=== PATIENT | female | born 1945 | race Caucasian/White ===

== ENCOUNTER 2016-12-20 16:38 | Emergency (ER) | payer OTHER ==
[~2016-12-20] VITALS: Ht 154.9 cm; Wt 63.0 kg
[2016-12-20 16:40] VITALS: BP 136/79; PULSE 80; RESP 18; TEMP 97.8; O2SAT 98
--- NOTE | 2016-12-20 19:22 | PD ---
HPI Chief Complaint: Injury Time Seen by Provider: 19:19 Travel History International Travel<30 days: No Contact w/Intl Traveler<30days: No Traveled to known affect area: No History of Present Illness HPI Patient comes in complaining of left knee, status post fall that occurred around noon today. Patient states she was outside in her garden when her dog caused her to fall. Patient is uncertain how she landed but states she fell to her left injuring her left knee. Denies hitting her head or loss of consciousness. Patient was seen at urgent care diagnosed with a knee sprain and sent to the emergency department for possible MRI. Patient states she took 2 Aleve after it happened with no improvement of her pain. Patient denies any radiation of the pain or numbness or tingling. Patient is over the anterior lateral aspect of the left knee is aching throbbing like in nature. Pain is worse with movement and standing. PFSH Past Medical History Hypertension: Yes Social History Alcohol Use: No Tobacco Use: No Substance Use: No Allergies-Medications (Allergen,Severity, Reaction): Coded Allergies: Aspirin (Verified Allergy, Severe, RASH, 12/20/16) Reported Meds & Prescriptions Reported Meds & Active Scripts Active Walker/Adult/Folding (Device) 1 Mis Mis 1 Ea .ROUTE DIRECTED Naprosyn (Naproxen) 500 Mg Tab 500 Mg PO Q12HR PRN Review of Systems Except as stated in HPI: all other systems reviewed are Neg Physical Exam Narrative GENERAL: Well-developed, well nourished, in no acute distress, and non-ill appearing. SKIN: Warm and dry. HEAD: Atraumatic. Normocephalic. EYES: Pupils equal and round. EOMI. No scleral icterus. No injection or drainage. ENT: No nasal bleeding or discharge. Mucous membranes pink and moist. NECK: Trachea midline. Supple. No nuclear rigidity. CARDIOVASCULAR: Dorsal pulses 2+, nontender, equal bilaterally. Capillary refill less than 2 seconds. RESPIRATORY: No accessory muscle use. No respiratory distress. MUSCULOSKELETAL: No obvious deformities. No clubbing. No cyanosis. No edema. Decreased range of motion left knee secondary to pain. Knee: Negative patellar apprehension, varus and valgus maneuvers, anterior draw test, and Eloy test. Pulses equal BL distal to injury. Capillary refill less than 2 seconds distal to injury and equal BL. FROM distal to injury and equal BL. Strength distal to injury equal BL. NV intact distal to injury. Dorsal pulses equal BL. Patient reports tenderness to palpation over anterior lateral aspect of the left knee and worsening pain with passive flexion of left knee. Soft tissue swelling noted. NEUROLOGICAL: Awake and alert. No obvious cranial nerve deficits. Motor grossly within normal limits. Normal speech. PSYCHIATRIC: Appropriate mood and affect; insight and judgment normal. Data Data Last Documented VS Vital Signs Date Time Temp Pulse Resp B/P Pulse Ox O2 Delivery O2 Flow Rate FiO2 12/20/16 20:33 16 12/20/16 16:40 97.8 80 136/79 98 Orders Tramadol (Ultram) (12/20/16 19:30) Ice/Cold Pack (12/20/16 19:18) Splint Or Brace Apply/Monitor (12/20/16 20:52) MDM Medical Decision Making Medical Screen Exam Complete: Yes Emergency Medical Condition: Yes Differential Diagnosis Fracture, sprain, contusion, other Narrative Course Repeat x-rays were ordered however the patient refuses as she was able to bring copies from the urgent care. These were reviewed with Dr. Warner and shows no acute bony abnormality. There is no clinical evidence to suspect bony injury by exam. Radiographic examination that patient brought with her revealed no fracture seen at this time. No obvious ligamental injury or obvious internal derangement is noted at this time. The anterior, posterior, lateral and medial collateral ligaments are intact and symmetrical. The distal extremity appears neurovascularly intact, without evidence of neurovascular injury nor compartment syndrome. Tendon exam also was intact. The effected limb was immobilized. The patient was discharged on pain medication along with sprain and splint care instructions and given warnings for vascular compromise. The patient is to follow up with Orthopedics. The patient agrees with plan. Patient in no obvious distress upon re-evaluation. All pertinent Radiology result(s) discussed with patient. Patient was asked if they wanted to speak to my attending, which the patient did not wish to do at this time. I discussed patient with Dr. Warner prior to discharge, who is in agreement with plan of care and disposition. Any questions/concerns in reference to patient diagnosis/ condition discussed and clarified prior to patient's discharge. Reinforced sheer importance of close follow up with patient's primary physician or primary care clinic and orthopedics. Instructed patient to return to ED immediately, if symptoms return/worsen. Pt showed understanding of above instructions. Further instructions and recommendations were detailed in discharge paperwork. Pt left without difficulty out of ED at discharge. Diagnosis Primary Impression: Left knee sprain Qualified Code: S83.92XD - Sprain of left knee, unspecified ligament, subsequent encounter Referrals: Koko Robles MD Patient Instructions: General Instructions, How to Choose and Use a Walker (GEN ), Knee Immobilizer (DC), Knee Sprain (ED) Additional Instructions: Follow-up with Dr. Han 24-48 hours reevaluation. Take all medication as prescribed. Apply ice to affected area 20 minutes per hour as needed for pain and swelling. Return to the emergency department if symptoms get worse. Med/Other Pt SpecificInfo: Prescription(s) given Scripts Walker/Adult/Folding 1 Mis Mis #1 EA .ROUTE DIRECTED Ref 0 Prov:Natalie Warner MD 12/20/16 Naproxen (Naprosyn)500 Mg Sra419 Mg PO Q12HR PRN (PAIN SCALE 1 TO 10) #12 TAB Ref 0 Prov:Natalie Warner MD 12/20/16 Disposition: 01 DISCHARGE HOME Condition: Stable Stephen Aponte Dec 20, 2016 19:22
[2016-12-20] MEDS ORDERED: traMADol HCL 50 MG TAB PO ONE (19:30)
[2016-12-20 20:33] VITALS: RESP 16
[2016-12-20] MEDS ORDERED: WALKER/ADULT/FO1 MIS (21:00)
[2016-12-20] MEDS ORDERED: NAPR500 PO (21:00)
== END 2016-12-20 21:22 | disposition home or self-care (01) ==
LOC: NEPB 16:38
DX: S83.92XA Sprain of unspecified site of left knee, initial encounter (principal); I10 Essential (primary) hypertension; W18.31XA Fall on same level due to stepping on an object, initial encounter; Y93.H2 Activity, gardening and landscaping; Y92.007 Garden or yard of unspecified non-institutional (private) residence as the place of occurrence of the external cause
CPT/HCPCS: 99283; L1830